=== PATIENT | female | born 1940 | race Caucasian/White ===

== ENCOUNTER → 2016-09-18 15:11 | Outpatient (CLI) | payer BC ==
[2011-04-16 12:48] VITALS: BMI 35.2
[2016-09-18 15:45] LABS: BASOPHILS 0.5 % (0.0-2.0); EOSINOPHILS 4.1 % (0-7); HEMATOCRIT 40.3 % (36.0-48.0); HEMOGLOBIN 11.6 g/dL (12-16); IMMATURE GRANULOCYTES 0.2 % (0-5); MCH 28.7 pg (26.0-34.0); MCHC 28.8 g/dL (31.0-37.0); MCV 99.8 fL (80.0-100.0); MEAN PLATELET VOLUME 13.1 fL (7.4-10.4); NEUTROPHILS 68.2 % (40-80); RBC 4.04 10x6/uL (4.00-5.40); RDW 14.2 % (11.5-14.5); WBC 5.6 10x3/uL (4.8-10.8)
[2016-09-18 15:52] LABS: PLATELET COUNT 107 10x3/uL (130-400)
[2016-09-18 16:18] LABS: CALCIUM 9.1 mg/dL (8.5-10.1); CREATININE - SERUM 0.9 mg/dL (0.6-1.3); MAGNESIUM - SERUM 2.2 mg/dL (1.8-2.4); PHOSPHOROUS 4.1 mg/dL (2.5-4.9); POTASSIUM - SERUM 4.6 mmol/L (3.5-5.1)
[2016-09-18 16:40] LABS: CARBON DIOXIDE 44.6 mmol/L (21.0-32.0)
== END | disposition home or self-care (01) ==
LOC: D.LABREF 15:11
PROVIDERS: Internal Medicine Pulmonary Disease
DX: I50.9 Heart failure, unspecified (principal); Z79.01 Long term (current) use of anticoagulants

== ENCOUNTER → 2017-03-10 13:31 | Outpatient (CLI) | payer BC ==
[2011-04-16 12:48] VITALS: BMI 35.2
== END | disposition home or self-care (01) ==
LOC: D.RT 13:31
DX: J44.9 Chronic obstructive pulmonary disease, unspecified (principal)

== ENCOUNTER → 2017-05-12 18:23 | Outpatient (CLI) | payer BC ==
[2011-04-16 12:48] VITALS: BMI 35.2
[~2017-05-12 18:23] MED LIST: ALBUTEROL1.25 MG/3 INH; BROVANA15 MCG/2 M INH; CALMOSEPTINE OI71 GM TOPICAL; FLORAJEN3 CAPS460 MG PO; FUROSEMIDE10 MG/M1 IV; GLUCOPHAGE500 MG PO; IPRAT-ALBUT 0.5-3 ML INH; K-DUR20 MEQ PO; LANOXIN125 MCG PO; LASIX40 MG PO; LISINOPRIL10 MG PO; LOVENOX60 MG/0.6 SC; Levaquin PREMIX IV; MAXIPIME 1 GM/D51 G1 IV; MULTAQ400 MG PO; Multivitamin LIQUID PEG; OMEPRAZOLE40 MG PO; PEPCID INJ20 MG/2 ML IV; PERIDEX480 ML PO; PRADAXA75 MG PO; PRAVACHOL40 MG PO; PROAIR HFA8.5 GM INH; PROTONIX I40 MG/VIAL IV; PULMICORT0.5 MG/21 UPD; SIMETHICON40 MG/0.6 PO
[2017-06-18 17:20] VITALS: BMI 25.7
== END | disposition home or self-care (01) ==
LOC: D.MAMMO 15:15
DX: Z12.31 Encounter for screening mammogram for malignant neoplasm of breast (principal)

== ENCOUNTER 2017-06-17 08:17 | Inpatient (IN) | payer MEDICARE, BC ==
[~2017-06-17] VITALS: Ht 162.6 cm; Wt 105.9 kg
--- NOTE | ~2017-06-17 | OP ---
PATIENT NAME: PHILIP JOYCE MEDICAL RECORD: [id number] :38 LOCATION:[facility] D.2309 ADMISSION DATE:06/17/17 SURGEON: HAM ARMANDO MD DATE OF OPERATION: 06/20/2017 SURGEON: Ham Armando MD PREOPERATIVE DIAGNOSES: 1. Small-bowel obstruction. 2. Atrial fibrillation with rapid ventricular response. 3. Chronic obstructive pulmonary disease. 4. Congestive heart failure. POSTOPERATIVE DIAGNOSES: 1. Small-bowel obstruction. 2. Atrial fibrillation with rapid ventricular response. 3. Chronic obstructive pulmonary disease. 4. Congestive heart failure. PROCEDURE PERFORMED: 1. Exploratory laparotomy. 2. Ultrasound-guided right internal jugular central venous line. ANESTHESIA: General. COMPLICATIONS: None. SPECIMENS: Small bowel resection. Case was clean contaminated. ESTIMATED BLOOD LOSS: 50 cc. OPERATIVE COURSE: After consent was obtained, the patient was taken to the operating room and placed in the supine position on the operating table. Next, general anesthesia was given via endotracheal intubation after a timeout was performed that confirmed the correct patient and procedure. The abdomen was prepped and draped in typical sterile fashion. During the operation, right ultrasound-guided internal jugular central venous line was placed by anesthesia. A lower midline abdominal incision was made from the umbilicus to the pubic tubercle with a 10-blade scalpel. Dissection continued to the level of the midline fascia using electrocautery. The midline fascia was opened with electrocautery. The peritoneum was grasped with hemostats times 2. It was opened with sharp Metzenbaum scissor dissection. Once in the peritoneal cavity, approximately 2 liters of ascites was suctioned from the abdomen. Once this was complete, the remaining portion of the lower midline abdominal incision was opened using electrocautery under direct vision and Ioban drapes had been placed in the skin prior to incision. Thomas retractor was placed into the lower midline abdominal incision. The small bowel was extracorporealized. A segment of approximately 20-25 cm of small bowel had formed into a closed loop obstruction. The bowel was reduced and untwisted. A functional ehyb-ls-ntae anastomosis was then created resecting the 20-25 cm of infarcted small bowel. Enterotomies were created with the Harmonic scalpel. Common enterotomy was created using the linear cutting stapler. A second firing of stapler was used to close the common enterotomy. The mesentery was then taken with the Harmonic OPERATIVE REPORT [id number] PHILIP JOYCE scalpel. The specimen was sent for permanent pathology. The mesenteric defect was closed with a 3-0 silk suture. The staple line was imbricated using 3-0 silk suture and the small bowel was run from the ligament of Treitz to the terminal ileum. The anastomosis was approximately 15-20 cm from the ileocecal valve. The abdomen was then irrigated with 3 liters of warm normal saline and again the small bowel was once again rerun from the ligament of Treitz to the terminal ileum. The anastomosis was widely patent. The NG tube was confirmed to be in the stomach. There was no evidence of bowel injury. No evidence of bleeding. At this time, the midline abdominal incision was closed with #1 looped PDS. Skin was closed with yuliet. At the end of the case, all needle and instrument counts were correct. No complications occurred. The patient was transferred to the PACU and recovery in stable condition. TRANSINT:[id number] Voice Confirmation ID: [id number] DOCUMENT ID: [id number] HAM ARMANDO MD at 1604 CC: [id number] DICTATION DATE: 06/20/17918 BOWLING ALLEY MECHANIC: 06/20/17 1043 ADM IN [address] [id number] [place] [address]
--- NOTE | ~2017-06-17 | CN ---
PATIENT NAME:PHILIP JOYCE MEDICAL RECORD: [id number] : 38 LOCATION:[facility].2309 ADMIT DATE: 06/17/17 ACCOUNT: [id number] CONSULTING PHYSICIAN: BENJAMIN EDUARDO MD REFERRING PHYSICIAN: JC SADLER MD DATE OF CONSULTATION: 06/19/2017 HISTORY OF PRESENT ILLNESS: A 77-year-old lady followed in our clinic with history of atrial fibrillation, chronic in nature as well as hypertension, diabetes mellitus and admitted with abdominal pain, was found to have bowel obstruction, being considered for bowel resection due to obstruction. We are asked to see her preoperatively. PAST MEDICAL HISTORY: 1. History of atrial fibrillation. 2. Obstructive pulmonary disease, O2 dependent. 3. Dyslipidemia. 4. Diabetes mellitus. 5. Gastroesophageal reflux disease. MEDICATIONS: Include: 1. Metformin 500 mg q.h.s. 2. Omeprazole 40 every day. 3. Lasix 40 b.i.d. p.r.n. 4. Pravastatin 40 every day. 5. Multaq 400 every day. 6. Digoxin 0.125 q.o.d. 7. Pradaxa 75 mg b.i.d. 8. Albuterol 2 puffs t.i.d. 9. Brovana 15 mcg b.i.d. ALLERGIES: None known. SOCIAL HISTORY: Retired, lives with her son. She is a nonsmoker and nondrinker. Easily takes care of her ADLs. REVIEW OF SYSTEMS: The patient reports easy bruising but reports no swollen glands. The patient reports no fever, no night sweats, no significant weight gain, no significant weight loss. No significant exercise tolerance. The patient reports no dry eyes, no irritation, no vision change. Patient reports no difficulty hearing and no ear pain. Patient reports no frequent nose bleeds or nose and sinus problems. Patient reports on arm pain on exertion. No shortness of breath while lying down. No history of heart murmur. Patient reports no cough, no wheezing or coughing up blood. Patient reports no abdominal pain, no vomiting. Normal appetite. No diarrhea and not vomiting blood. No nausea and no constipation. Patient reports no incontinence. No difficulty urinating. No hematuria. No increased frequency. Patient reports no muscle aches. No weakness, no arthralgias, no back pain. No swelling of the extremities. Patient reports no abnormal mole, no jaundice, no rashes. Reports no loss of consciousness. No weakness and no numbness. No seizures, dizziness, or headaches. The patient reports no depression, no sleep disturbance, feeling safe in a relationship and no alcohol abuse. Patient reports on fatigue. Reports no runny nose or sinus pressure. No itching, no hives, and no frequent sneezing. CONSULT REPORT [id number] PHILIP JOYCE PHYSICAL EXAMINATION: GENERAL: A pleasant female in no acute distress. VITAL SIGNS: Blood pressure 111/56, pulse 123 and irregular. HEENT: Normocephalic, atraumatic. NECK: No bruits are noted. HEART: Irregular, II/ systolic ejection murmur. Rate is currently about 96. LUNGS: Fairly good excursion. Rhythm is slight prolonged expiratory phase. ABDOMEN: Soft, nontender. EXTREMITIES: Pulses are palpable, 1+. There is no edema. NEUROLOGIC: Grossly intact. DIAGNOSTIC DATA: ECG shows AFib, variable response. IMPRESSION: AFib, intermittently tachycardic at this time, probably secondary to intravascular volume depletion, pain, etc. We will give extra digoxin IV for the short term. Echocardiogram study was reviewed. LV function remains normal. No contraindication to surgery if indicated from a cardiovascular standpoint. TRANSINT:[id number] Voice Confirmation ID: [id number] DOCUMENT ID: [id number] BENJAMIN EDUARDO MD at 0817 CC: [id number] DICTATION DATE: 06/19/17 1500 OUTREACH TEAM MEMBER: 06/19/17 1703 ADM IN [place] [id number] [place] [address]
--- NOTE | ~2017-06-17 | EC ---
PATIENT:PHILIP JOYCE DATE OF SERVICE: 06/17/17 SEX: F MEDICAL RECORD: [id number] DATE OF : 38 LOCATION:[facility] AGE OF PATIENT: 77 ADMISSION DATE: 06/17/17 REFERRING PHYSICIAN: INTERPRETING PHYSICIAN: ALLEN BECKER MD ECHOCARDIOGRAM REPORT ECHO CHARGES 4 ECHO COMPLETE CLINICAL DIAGNOSIS: AFIB/CHF ECHOCARDIOGRAPHIC MEASUREMENTS (adult normal given) AC root (d.<3.7cm) 3.1 cm LV Septum d (<1.2 cm> 1.5 cm Valve Excursion 1.3 cm LV Septum (systole) 1.6 cm Left Atria (s.<4.0cm> 4.0 cm LVPW d(<1.2cm) 1.6 cm RV (d.<2.3cm) 3.1 cm LVPW (sytole) 1.8 cm LV diastole(<5.6CM) 3.2 cm MV E-F(>70mm/sec) cm LV systole 1.8 cm LVOT Diameter 1.7 cm MV exc.(>10mm) cm Est.ejection fraction (50-75%) % Pericardial Effusion N DOPPLER: LVIT cm/sec A 78.0 cm/sec E 40.0 cm/sec LA cm/sec RVSP 51 mmHg LVOT 116 cm/sec AOP1/2T m/s Asc. Ao 145 cm/sec RVOT cm/sec RA cm/sec PA 157 cm/sec AV Gradient Peak 8.38 mmHg AV Mean 4.71 mmHg AV Area 2.0 cm MV Gradient Peak 3.88 mmHg MV Mean 1.24 mmHg MV Area cm COMMENTS: Drum Sprayer: Bang BUSH Credit Administration Specialist: 1 Dr. Becker TAPE# pacs DATE OF SERVICE: 06/17/2017 FINDINGS: 1. Left ventricular chamber size is within normal limits. Left ventricular systolic function is normal. Overall ejection fraction estimated at 60%. 2. Left atrium is upper limits of normal at 4.0 cm. Right atrium and right ventricular sizes are moderately dilated. 3. Valvular structures have normal structure and motion. 4. Doppler interrogation reveals mild mitral regurgitation, moderate tricuspid regurgitation. No other valvular insufficiency or stenosis. Pulmonary systolic ECHOCARDIOGRAM REPORT [id number] PHILIP JOYCE pressure is elevated, estimated at 51 mmHg. 5. No evidence of pericardial effusion or left ventricular thrombus. TRANSINT:[id number] Voice Confirmation ID: [id number] DOCUMENT ID: [id number] ALLEN BECKER MD at 1215 CC: [id number] DICTATION DATE: 06/18/17 1106 BAG WORKER: 06/18/17 1243 ADM IN [facility] [address] [place] [id number]
[2017-06-17 09:05] LABS: BASOPHILS 0.2 % (0-2); EOSINOPHILS 0.1 % (0-7); HEMATOCRIT 38.4 % (36.0-48.0); HEMOGLOBIN 11.5 g/dL (12-16); IMMATURE GRANULOCYTES 0.2 % (0-5); LYMPHOCYTES 5.2 % (15-50); MCH 26.6 pg (26.0-34.0); MCHC 29.9 g/dL (31.0-37.0); MCV 88.9 fL (80.0-100.0); MEAN PLATELET VOLUME 11.8 fL (7.4-10.4); MONOCYTES 3.1 % (2-11); NEUTROPHILS 91.2 % (40-80); RBC 4.32 10x6/uL (4.00-5.40); RDW 15.6 % (11.5-14.5)
[2017-06-17 09:09] LABS: PLATELET COUNT 161 10x3/uL (130-400)
[2017-06-17 10:00] LABS: AMYLASE - SERUM 31 U/L (25-115); LIPASE 122 U/L (73-393)
[2017-06-17 10:04] LABS: ALBUMIN 3.9 g/dL (3.4-5.0); ANION GAP 15.8 mmol/L (8-16); BILIRUBIN - TOTAL 0.4 mg/dL (0.2-1.3); CALCIUM 8.9 mg/dL (8.5-10.1); CREATININE - SERUM 1.4 mg/dL (0.6-1.3); POTASSIUM - SERUM 3.8 mmol/L (3.5-5.1); PROTEIN - SERUM 7.4 g/dL (6.4-8.2)
[2017-06-17 10:06] LABS: APPEARANCE HAZY (CLEAR); BACTERIA FEW /hpf (NONE SEEN); BILIRUBIN NEGATIVE (NEGATIVE); COLOR YELLOW (YELLOW); GLUCOSE NEGATIVE (NEGATIVE); HYALINE CAST 0-5 /lpf (NONE SEEN); KETONE NEGATIVE (NEGATIVE); MUCUS <1+ /lpf (NONE SEEN); NITRITE NEGATIVE (NEGATIVE); PROTEIN 1+ mg/dL (NEGATIVE); RED CELLS - URINE 0-5 /hpf (0-5); UROBILINOGEN NORMAL (NORMAL); WHITE CELLS - URINE RARE /hpf (0-5)
[2017-06-17 15:34] VITALS: BP 125/55
[2017-06-17] MEDS ORDERED: LANOXIN125 MCG PO (16:24)
[2017-06-17] MEDS ORDERED: K-DUR20 MEQ PO (16:25)
[2017-06-17] MEDS ORDERED: LASIX40 MG PO (16:25)
[2017-06-17] MEDS ORDERED: PROAIR HFA8.5 GM INH (16:26)
[2017-06-17] MEDS ORDERED: PRADAXA75 MG PO (16:26)
[2017-06-17] MEDS ORDERED: MULTAQ400 MG PO (16:27)
[2017-06-17] MEDS ORDERED: GLUCOPHAGE500 MG PO (16:27)
[2017-06-17] MEDS ORDERED: BROVANA15 MCG/2 M INH (16:28)
[2017-06-17] MEDS ORDERED: PRAVACHOL40 MG PO (16:28)
[2017-06-17] MEDS ORDERED: OMEPRAZOLE40 MG PO (16:28)
[2017-06-17] MEDS ORDERED: ALBUTEROL1.25 MG/3 INH (16:29)
[2017-06-17 17:20] VITALS: BP 125/55; BMI 25.8
[2017-06-17 20:00] VITALS: BP 115/73
[2017-06-18] VITALS: BP 122/70
[2017-06-18 04:00] VITALS: BP 123/74
[2017-06-18 05:30] LABS: BASOPHILS 0.1 % (0-2); EOSINOPHILS 0 % (0-7); HEMATOCRIT 42.3 % (36.0-48.0); HEMOGLOBIN 12.8 g/dL (12-16); IMMATURE GRANULOCYTES 0.2 % (0-5); LYMPHOCYTES 2.9 % (15-50); MCH 26.6 pg (26.0-34.0); MCHC 30.3 g/dL (31.0-37.0); MCV 87.8 fL (80.0-100.0); MEAN PLATELET VOLUME 12.9 fL (7.4-10.4); NEUTROPHILS 87.8 % (40-80); PLATELET COUNT 165 10x3/uL (130-400); RBC 4.82 10x6/uL (4.00-5.40); RDW 16.3 % (11.5-14.5); WBC 14.9 10x3/uL (4.8-10.8)
[2017-06-18 06:01] LABS: ANION GAP 8.6 mmol/L (8-16); BILIRUBIN - TOTAL 0.4 mg/dL (0.2-1.3); CALCIUM 8.7 mg/dL (8.5-10.1); CARBON DIOXIDE 34.6 mmol/L (21.0-32.0); CREATININE - SERUM 1.4 mg/dL (0.6-1.3); POTASSIUM - SERUM 4.2 mmol/L (3.5-5.1); PROTEIN - SERUM 5.9 g/dL (6.4-8.2)
[2017-06-18 06:03] LABS: ALBUMIN 2.6 g/dL (3.4-5.0)
[2017-06-18 09:31] VITALS: BP 32/71; BP 92/71
[2017-06-18 11:33] VITALS: BP 97/58
[2017-06-18 12:49] VITALS: BMI 25.7
[2017-06-18 16:34] VITALS: BP 115/42
[2017-06-18 17:20] VITALS: Ht 162.6 cm; Wt 105.9 kg
[2017-06-18 19:28] LABS: APTT 32.5 SECONDS (22.8-39.4)
[2017-06-18 19:29] LABS: INR 1.12 (0.85-1.17)
[2017-06-18 19:33] LABS: APPEARANCE CLEAR (CLEAR); BILIRUBIN NEGATIVE (NEGATIVE); COLOR YELLOW (YELLOW); GLUCOSE NEGATIVE (NEGATIVE); KETONE NEGATIVE (NEGATIVE); NITRITE NEGATIVE (NEGATIVE); PROTEIN NEGATIVE (NEGATIVE); SPECIFIC GRAVITY 1.015 (1.005-1.020); UROBILINOGEN NORMAL (NORMAL)
[2017-06-18 19:34] LABS: WHITE CELLS - URINE 0-5 /hpf (0-5)
[2017-06-18 19:35] LABS: BACTERIA FEW /hpf (NONE SEEN); EPITHELIAL CELLS 0-5 /hpf (0-5); RED CELLS - URINE OCC /hpf (0-5)
[2017-06-18 20:00] VITALS: BP 156/82
[2017-06-19] VITALS (11 sets, daily range): BP systolic 92–148; BP diastolic 47–84
[2017-06-19 06:17] LABS: BASOPHILS 0.1 % (0-2); EOSINOPHILS 0.1 % (0-7); HEMATOCRIT 38.3 % (36.0-48.0); HEMOGLOBIN 11.4 g/dL (12-16); IMMATURE GRANULOCYTES 0.3 % (0-5); LYMPHOCYTES 3.3 % (15-50); MCH 26.5 pg (26.0-34.0); MCHC 29.8 g/dL (31.0-37.0); MCV 88.9 fL (80.0-100.0); MEAN PLATELET VOLUME 13.3 fL (7.4-10.4); MONOCYTES 9.1 % (2-11); NEUTROPHILS 87.1 % (40-80); PLATELET COUNT 156 10x3/uL (130-400); RBC 4.31 10x6/uL (4.00-5.40); RDW 16.6 % (11.5-14.5); WBC 15.8 10x3/uL (4.8-10.8)
[2017-06-19 07:05] LABS: ALBUMIN 2.3 g/dL (3.4-5.0); ANION GAP 10.1 mmol/L (8-16); BILIRUBIN - TOTAL 0.36 mg/dL (0.2-1.3); CALCIUM 8.4 mg/dL (8.5-10.1); CARBON DIOXIDE 32.8 mmol/L (21.0-32.0); POTASSIUM - SERUM 3.9 mmol/L (3.5-5.1); PROTEIN - SERUM 5.7 g/dL (6.4-8.2)
[2017-06-20] VITALS (32 sets, daily range): BP systolic 67–156; BP diastolic 34–97
[2017-06-20 04:09] LABS: BASOPHILS 0.1 % (0-2); EOSINOPHILS 0.1 % (0-7); HEMATOCRIT 37.6 % (36.0-48.0); HEMOGLOBIN 11.1 g/dL (12-16); IMMATURE GRANULOCYTES 0.3 % (0-5); LYMPHOCYTES 4.4 % (15-50); MCH 26.7 pg (26.0-34.0); MCHC 29.5 g/dL (31.0-37.0); MCV 90.4 fL (80.0-100.0); MEAN PLATELET VOLUME 12.7 fL (7.4-10.4); MONOCYTES 8.5 % (2-11); NEUTROPHILS 86.6 % (40-80); PLATELET COUNT 167 10x3/uL (130-400); RBC 4.16 10x6/uL (4.00-5.40); RDW 16.5 % (11.5-14.5); WBC 14.4 10x3/uL (4.8-10.8)
[2017-06-20 04:15] LABS: ALBUMIN 2.2 g/dL (3.4-5.0); ANION GAP 8.1 mmol/L (8-16); BILIRUBIN - TOTAL 0.35 mg/dL (0.2-1.3); CALCIUM 8.1 mg/dL (8.5-10.1); CARBON DIOXIDE 34.3 mmol/L (21.0-32.0); MAGNESIUM - SERUM 2.3 mg/dL (1.8-2.4); PHOSPHOROUS 4.4 mg/dL (2.5-4.9); POTASSIUM - SERUM 4.4 mmol/L (3.5-5.1); PROTEIN - SERUM 5.5 g/dL (6.4-8.2)
[2017-06-21] VITALS (92 sets, daily range): BP systolic 79–132; BP diastolic 35–96
[2017-06-21 04:37] LABS: BASOPHILS 0.1 % (0-2); EOSINOPHILS 0.1 % (0-7); HEMATOCRIT 35.1 % (36.0-48.0); HEMOGLOBIN 10.5 g/dL (12-16); IMMATURE GRANULOCYTES 0.3 % (0-5); LYMPHOCYTES 4.6 % (15-50); MCH 26.8 pg (26.0-34.0); MCHC 29.9 g/dL (31.0-37.0); MCV 89.5 fL (80.0-100.0); MEAN PLATELET VOLUME 11.4 fL (7.4-10.4); MONOCYTES 9.6 % (2-11); NEUTROPHILS 85.3 % (40-80); PLATELET COUNT 197 10x3/uL (130-400); RBC 3.92 10x6/uL (4.00-5.40); RDW 16.8 % (11.5-14.5); WBC 14.2 10x3/uL (4.8-10.8)
[2017-06-21 04:56] LABS: ALBUMIN 1.7 g/dL (3.4-5.0); ALKALINE PHOSPHATASE 46 U/L (46-116); ALT (SGPT) 8 U/L (10-68); BILIRUBIN - TOTAL 0.26 mg/dL (0.2-1.3); CALC OSMOLALITY 297 mosm/kg (275-300); CALCIUM 7.3 mg/dL (8.5-10.1); CHLORIDE - SERUM 115 mmol/L (98-107); CREATININE - SERUM 1.1 mg/dL (0.6-1.3); GLUCOSE 132 mg/dL (74-106); MAGNESIUM - SERUM 1.9 mg/dL (1.8-2.4); POTASSIUM - SERUM 4.1 mmol/L (3.5-5.1); PROTEIN - SERUM 4.6 g/dL (6.4-8.2); SODIUM 146 mmol/L (136-145); UREA NITROGEN 27 mg/dL (7-18); eGFR NON AFRICAN AMERICAN 51 mL/min (90-120)
[2017-06-21 04:57] LABS: CARBON DIOXIDE 24.8 mmol/L (21.0-32.0); PHOSPHOROUS 3.2 mg/dL (2.5-4.9); TROPONIN-I < 0.017 ng/mL (0.000-0.060)
[2017-06-22] VITALS (96 sets, daily range): BP systolic 83–122; BP diastolic 37–67
[2017-06-22 04:02] LABS: BASOPHILS 0.1 % (0-2); EOSINOPHILS 0.5 % (0-7); HEMATOCRIT 33.1 % (36.0-48.0); HEMOGLOBIN 9.7 g/dL (12-16); IMMATURE GRANULOCYTES 0.5 % (0-5); LYMPHOCYTES 5.8 % (15-50); MCH 26.7 pg (26.0-34.0); MCHC 29.3 g/dL (31.0-37.0); MCV 91.2 fL (80.0-100.0); MEAN PLATELET VOLUME 11.3 fL (7.4-10.4); MONOCYTES 11.2 % (2-11); NEUTROPHILS 81.9 % (40-80); PLATELET COUNT 200 10x3/uL (130-400); RBC 3.63 10x6/uL (4.00-5.40); RDW 17.5 % (11.5-14.5); WBC 14.6 10x3/uL (4.8-10.8)
[2017-06-22 04:15] LABS: ALBUMIN 1.6 g/dL (3.4-5.0); BILIRUBIN - TOTAL 0.21 mg/dL (0.2-1.3); CALCIUM 7.4 mg/dL (8.5-10.1); MAGNESIUM - SERUM 1.8 mg/dL (1.8-2.4); PHOSPHOROUS 2.5 mg/dL (2.5-4.9); POTASSIUM - SERUM 4.2 mmol/L (3.5-5.1); PROTEIN - SERUM 4.7 g/dL (6.4-8.2)
[2017-06-22 04:16] LABS: ANION GAP 14.2 mmol/L (8-16)
[2017-06-23] VITALS (81 sets, daily range): BP systolic 80–125; BP diastolic 38–69
[2017-06-23 04:24] LABS: BASOPHILS 0.1 % (0-2); HEMATOCRIT 27.3 % (36.0-48.0); HEMOGLOBIN 8.3 g/dL (12-16); IMMATURE GRANULOCYTES 0.6 % (0-5); LYMPHOCYTES 9.2 % (15-50); MCH 26.7 pg (26.0-34.0); MCHC 30.4 g/dL (31.0-37.0); NEUTROPHILS 81.1 % (40-80); PLATELET COUNT 172 10x3/uL (130-400); RBC 3.11 10x6/uL (4.00-5.40); RDW 17.8 % (11.5-14.5)
[2017-06-23 04:26] LABS: MCV 87.8 fL (80.0-100.0); WBC 8.8 10x3/uL (4.8-10.8)
[2017-06-23 04:44] LABS: ALBUMIN 1.8 g/dL (3.4-5.0); ANION GAP 9.9 mmol/L (8-16); BILIRUBIN - TOTAL 0.25 mg/dL (0.2-1.3); CALCIUM 7.7 mg/dL (8.5-10.1); CARBON DIOXIDE 26.2 mmol/L (21.0-32.0); CREATININE - SERUM 0.9 mg/dL (0.6-1.3); PHOSPHOROUS 1.1 mg/dL (2.5-4.9); POTASSIUM - SERUM 4.1 mmol/L (3.5-5.1); PROTEIN - SERUM 4.8 g/dL (6.4-8.2)
[2017-06-24] VITALS (24 sets, daily range): BP systolic 95–153; BP diastolic 45–78
[2017-06-24 05:21] LABS: BASOPHILS 0.1 % (0-2); EOSINOPHILS 0.1 % (0-7); HEMATOCRIT 28.4 % (36.0-48.0); HEMOGLOBIN 8.4 g/dL (12-16); IMMATURE GRANULOCYTES 0.6 % (0-5); LYMPHOCYTES 3.8 % (15-50); MCH 26.7 pg (26.0-34.0); MCHC 29.6 g/dL (31.0-37.0); MONOCYTES 5.7 % (2-11); NEUTROPHILS 89.7 % (40-80); PLATELET COUNT 184 10x3/uL (130-400); RBC 3.15 10x6/uL (4.00-5.40); WBC 9.8 10x3/uL (4.8-10.8)
[2017-06-24 05:25] LABS: MCV 90.2 fL (80.0-100.0)
[2017-06-24 05:44] LABS: ANION GAP 9.2 mmol/L (8-16); BILIRUBIN - TOTAL 0.29 mg/dL (0.2-1.3); CALCIUM 7.8 mg/dL (8.5-10.1); CARBON DIOXIDE 29.5 mmol/L (21.0-32.0); CREATININE - SERUM 0.8 mg/dL (0.6-1.3); MAGNESIUM - SERUM 2.3 mg/dL (1.8-2.4); POTASSIUM - SERUM 4.7 mmol/L (3.5-5.1); PROTEIN - SERUM 5.5 g/dL (6.4-8.2)
[2017-06-24 05:49] LABS: ALBUMIN 2.5 g/dL (3.4-5.0)
[2017-06-25] VITALS (29 sets, daily range): BP systolic 80–155; BP diastolic 48–84
[2017-06-25 05:01] LABS: BASOPHILS 0 % (0-2); EOSINOPHILS 0.1 % (0-7); HEMATOCRIT 27.2 % (36.0-48.0); HEMOGLOBIN 8.1 g/dL (12-16); IMMATURE GRANULOCYTES 0.7 % (0-5); LYMPHOCYTES 3.6 % (15-50); MCH 26.6 pg (26.0-34.0); MCHC 29.8 g/dL (31.0-37.0); MCV 89.2 fL (80.0-100.0); MEAN PLATELET VOLUME 11.3 fL (7.4-10.4); MONOCYTES 8.6 % (2-11); PLATELET COUNT 194 10x3/uL (130-400); RBC 3.05 10x6/uL (4.00-5.40); RDW 17.7 % (11.5-14.5); WBC 9.8 10x3/uL (4.8-10.8)
[2017-06-25 05:22] LABS: ALBUMIN 2.7 g/dL (3.4-5.0); ANION GAP 7.3 mmol/L (8-16); BILIRUBIN - TOTAL 0.22 mg/dL (0.2-1.3); CALCIUM 8.2 mg/dL (8.5-10.1); CARBON DIOXIDE 32.3 mmol/L (21.0-32.0); CREATININE - SERUM 0.8 mg/dL (0.6-1.3); MAGNESIUM - SERUM 2.4 mg/dL (1.8-2.4); POTASSIUM - SERUM 4.6 mmol/L (3.5-5.1); PROTEIN - SERUM 5.3 g/dL (6.4-8.2)
[2017-06-26] VITALS (24 sets, daily range): BP systolic 98–126; BP diastolic 44–69
[2017-06-26 03:52] LABS: BASOPHILS 0 % (0-2); EOSINOPHILS 2.4 % (0-7); IMMATURE GRANULOCYTES 0.5 % (0-5); LYMPHOCYTES 8.4 % (15-50); MCH 26.9 pg (26.0-34.0); MCHC 30.8 g/dL (31.0-37.0); MCV 87.5 fL (80.0-100.0); MONOCYTES 10.2 % (2-11); NEUTROPHILS 78.5 % (40-80); PLATELET COUNT 193 10x3/uL (130-400); RBC 2.97 10x6/uL (4.00-5.40); RDW 17.7 % (11.5-14.5); WBC 7.9 10x3/uL (4.8-10.8)
[2017-06-26 04:07] LABS: ALBUMIN 2.8 g/dL (3.4-5.0); ANION GAP 8.1 mmol/L (8-16); BILIRUBIN - TOTAL 0.33 mg/dL (0.2-1.3); CALCIUM 7.8 mg/dL (8.5-10.1); CARBON DIOXIDE 29.9 mmol/L (21.0-32.0); CREATININE - SERUM 0.9 mg/dL (0.6-1.3); MAGNESIUM - SERUM 2.4 mg/dL (1.8-2.4)
[2017-06-27] VITALS (24 sets, daily range): BP systolic 97–144; BP diastolic 44–90
[2017-06-27 05:02] LABS: BASOPHILS 0 % (0-2); EOSINOPHILS 1.9 % (0-7); HEMATOCRIT 26.7 % (36.0-48.0); HEMOGLOBIN 8.3 g/dL (12-16); IMMATURE GRANULOCYTES 0.4 % (0-5); LYMPHOCYTES 8.8 % (15-50); MCH 27.2 pg (26.0-34.0); MCHC 31.1 g/dL (31.0-37.0); MCV 87.5 fL (80.0-100.0); MEAN PLATELET VOLUME 10.7 fL (7.4-10.4); MONOCYTES 8.6 % (2-11); NEUTROPHILS 80.3 % (40-80); PLATELET COUNT 216 10x3/uL (130-400); RBC 3.05 10x6/uL (4.00-5.40); RDW 18.1 % (11.5-14.5); WBC 9.5 10x3/uL (4.8-10.8)
[2017-06-27 05:22] LABS: ALBUMIN 2.5 g/dL (3.4-5.0); ALKALINE PHOSPHATASE 57 U/L (46-116); ALT (SGPT) 13 U/L (10-68); BILIRUBIN - TOTAL 0.33 mg/dL (0.2-1.3); CALC OSMOLALITY 294 mosm/kg (275-300); CALCIUM 7.6 mg/dL (8.5-10.1); CARBON DIOXIDE 30.1 mmol/L (21.0-32.0); CHLORIDE - SERUM 110 mmol/L (98-107); CREATININE - SERUM 0.7 mg/dL (0.6-1.3); GLUCOSE 126 mg/dL (74-106); MAGNESIUM - SERUM 2.5 mg/dL (1.8-2.4); POTASSIUM - SERUM 4.2 mmol/L (3.5-5.1); PROTEIN - SERUM 4.8 g/dL (6.4-8.2); SODIUM 144 mmol/L (136-145); UREA NITROGEN 28 mg/dL (7-18); eGFR NON AFRICAN AMERICAN 86 mL/min (90-120)
[2017-06-27 14:19] LABS: FUNGUS STAIN Final report (())
[2017-06-27 16:11] LABS: AFB SPECIMEN PROCESSING Concentration (())
[2017-06-28] VITALS (23 sets, daily range): BP systolic 113–169; BP diastolic 52–81
[2017-06-28 04:24] LABS: BASOPHILS 0 % (0-2); EOSINOPHILS 1.6 % (0-7); HEMATOCRIT 26.5 % (36.0-48.0); HEMOGLOBIN 8.1 g/dL (12-16); IMMATURE GRANULOCYTES 0.4 % (0-5); LYMPHOCYTES 7.6 % (15-50); MCH 26.6 pg (26.0-34.0); MCHC 30.6 g/dL (31.0-37.0); MCV 86.9 fL (80.0-100.0); MEAN PLATELET VOLUME 10.4 fL (7.4-10.4); MONOCYTES 6.9 % (2-11); NEUTROPHILS 83.5 % (40-80); PLATELET COUNT 206 10x3/uL (130-400); RBC 3.05 10x6/uL (4.00-5.40); RDW 18.1 % (11.5-14.5); WBC 10.6 10x3/uL (4.8-10.8)
[2017-06-28 04:41] LABS: ALBUMIN 2.3 g/dL (3.4-5.0); ALKALINE PHOSPHATASE 72 U/L (46-116); BILIRUBIN - TOTAL 0.38 mg/dL (0.2-1.3); CALC OSMOLALITY 295 mosm/kg (275-300); CALCIUM 7.4 mg/dL (8.5-10.1); CARBON DIOXIDE 33.1 mmol/L (21.0-32.0); CHLORIDE - SERUM 109 mmol/L (98-107); CREATININE - SERUM 0.6 mg/dL (0.6-1.3); GLUCOSE 156 mg/dL (74-106); MAGNESIUM - SERUM 2.5 mg/dL (1.8-2.4); POTASSIUM - SERUM 3.7 mmol/L (3.5-5.1); SODIUM 145 mmol/L (136-145); UREA NITROGEN 23 mg/dL (7-18); eGFR NON AFRICAN AMERICAN > 90 mL/min (90-120)
[2017-06-28 04:43] LABS: ALT (SGPT) 17 U/L (10-68)
[2017-06-29] VITALS (24 sets, daily range): BP systolic 98–141; BP diastolic 46–74
[2017-06-29 04:41] LABS: BASOPHILS 0.1 % (0-2); EOSINOPHILS 2.3 % (0-7); HEMATOCRIT 26.7 % (36.0-48.0); IMMATURE GRANULOCYTES 0.4 % (0-5); LYMPHOCYTES 5.5 % (15-50); MCH 26.6 pg (26.0-34.0); MCV 88.7 fL (80.0-100.0); MEAN PLATELET VOLUME 11.3 fL (7.4-10.4); MONOCYTES 11.1 % (2-11); NEUTROPHILS 80.6 % (40-80); PLATELET COUNT 220 10x3/uL (130-400); RBC 3.01 10x6/uL (4.00-5.40); RDW 17.7 % (11.5-14.5); WBC 9.9 10x3/uL (4.8-10.8)
[2017-06-29 05:11] LABS: ALBUMIN 2.2 g/dL (3.4-5.0); ALKALINE PHOSPHATASE 82 U/L (46-116); CALCIUM 7.5 mg/dL (8.5-10.1); CARBON DIOXIDE 35.5 mmol/L (21.0-32.0); CHLORIDE - SERUM 109 mmol/L (98-107); CREATININE - SERUM 0.6 mg/dL (0.6-1.3); GLUCOSE 126 mg/dL (74-106); POTASSIUM - SERUM 3.4 mmol/L (3.5-5.1); PROTEIN - SERUM 4.9 g/dL (6.4-8.2); SODIUM 149 mmol/L (136-145); eGFR NON AFRICAN AMERICAN > 90 mL/min (90-120)
[2017-06-29 05:19] LABS: ALT (SGPT) 23 U/L (10-68); CALC OSMOLALITY 299 mosm/kg (275-300); UREA NITROGEN 17 mg/dL (7-18)
[2017-06-30] VITALS (23 sets, daily range): BP systolic 92–128; BP diastolic 46–90
[2017-06-30 10:26] LABS: BASOPHILS 0.1 % (0-2); HEMATOCRIT 24.5 % (36.0-48.0); IMMATURE GRANULOCYTES 0.3 % (0-5); LYMPHOCYTES 10.4 % (15-50); MCH 26.8 pg (26.0-34.0); MCHC 30.2 g/dL (31.0-37.0); MCV 88.8 fL (80.0-100.0); MEAN PLATELET VOLUME 10.1 fL (7.4-10.4); MONOCYTES 9.1 % (2-11); NEUTROPHILS 77.1 % (40-80); PLATELET COUNT 184 10x3/uL (130-400); RBC 2.76 10x6/uL (4.00-5.40); RDW 17.6 % (11.5-14.5)
[2017-06-30 10:36] LABS: HEMOGLOBIN 7.4 g/dL (12-16)
[2017-06-30 10:48] LABS: CALC OSMOLALITY 291 mosm/kg (275-300); CALCIUM 7.3 mg/dL (8.5-10.1); CARBON DIOXIDE 37.4 mmol/L (21.0-32.0); CHLORIDE - SERUM 106 mmol/L (98-107); CREATININE - SERUM 0.5 mg/dL (0.6-1.3); GLUCOSE 97 mg/dL (74-106); POTASSIUM - SERUM 3.2 mmol/L (3.5-5.1); SODIUM 146 mmol/L (136-145); UREA NITROGEN 16 mg/dL (7-18); eGFR NON AFRICAN AMERICAN > 90 mL/min (90-120)
[2017-07-01] VITALS (24 sets, daily range): BP systolic 92–123; BP diastolic 45–91
[2017-07-01 04:59] LABS: BASOPHILS 0.3 % (0-2); EOSINOPHILS 3.3 % (0-7); HEMOGLOBIN 8.6 g/dL (12-16); IMMATURE GRANULOCYTES 0.3 % (0-5); LYMPHOCYTES 7.9 % (15-50); MCH 26.8 pg (26.0-34.0); MCHC 30.7 g/dL (31.0-37.0); MCV 87.2 fL (80.0-100.0); MONOCYTES 10.8 % (2-11); NEUTROPHILS 77.4 % (40-80); PLATELET COUNT 192 10x3/uL (130-400); RBC 3.21 10x6/uL (4.00-5.40); RDW 16.6 % (11.5-14.5); WBC 7.2 10x3/uL (4.8-10.8)
[2017-07-01 05:35] LABS: ALBUMIN 2.2 g/dL (3.4-5.0); ALKALINE PHOSPHATASE 102 U/L (46-116); ALT (SGPT) 20 U/L (10-68); BILIRUBIN - DIRECT 0.33 mg/dL (0.00-0.30); BILIRUBIN - INDIRECT 0.45 mg/dL (0.00-1.00); BILIRUBIN - TOTAL 0.78 mg/dL (0.2-1.3); CALC OSMOLALITY 284 mosm/kg (275-300); CALCIUM 7.6 mg/dL (8.5-10.1); CARBON DIOXIDE 36.6 mmol/L (21.0-32.0); CHLORIDE - SERUM 105 mmol/L (98-107); CREATININE - SERUM 0.6 mg/dL (0.6-1.3); GLUCOSE 82 mg/dL (74-106); MAGNESIUM - SERUM 2.4 mg/dL (1.8-2.4); PHOSPHOROUS 2.9 mg/dL (2.5-4.9); POTASSIUM - SERUM 3.2 mmol/L (3.5-5.1); PROTEIN - SERUM 4.9 g/dL (6.4-8.2); SODIUM 143 mmol/L (136-145); UREA NITROGEN 15 mg/dL (7-18); eGFR NON AFRICAN AMERICAN > 90 mL/min (90-120)
[2017-07-02] VITALS (26 sets, daily range): BP systolic 101–146; BP diastolic 52–88
[2017-07-02 04:12] LABS: BASOPHILS 0.3 % (0-2); EOSINOPHILS 2.5 % (0-7); HEMATOCRIT 29.9 % (36.0-48.0); HEMOGLOBIN 8.9 g/dL (12-16); IMMATURE GRANULOCYTES 0.2 % (0-5); LYMPHOCYTES 6.2 % (15-50); MCH 26.6 pg (26.0-34.0); MCHC 29.8 g/dL (31.0-37.0); MEAN PLATELET VOLUME 11.7 fL (7.4-10.4); MONOCYTES 7.6 % (2-11); NEUTROPHILS 83.2 % (40-80); PLATELET COUNT 222 10x3/uL (130-400); RBC 3.34 10x6/uL (4.00-5.40); RDW 16.8 % (11.5-14.5)
[2017-07-02 04:21] LABS: MCV 89.5 fL (80.0-100.0)
[2017-07-02 04:27] LABS: CALC OSMOLALITY 283 mosm/kg (275-300); CALCIUM 7.8 mg/dL (8.5-10.1); CHLORIDE - SERUM 104 mmol/L (98-107); CREATININE - SERUM 0.6 mg/dL (0.6-1.3); GLUCOSE 112 mg/dL (74-106); MAGNESIUM - SERUM 2.6 mg/dL (1.8-2.4); PHOSPHOROUS 3.3 mg/dL (2.5-4.9); POTASSIUM - SERUM 3.5 mmol/L (3.5-5.1); SODIUM 142 mmol/L (136-145); UREA NITROGEN 13 mg/dL (7-18); eGFR NON AFRICAN AMERICAN > 90 mL/min (90-120)
[2017-07-03] VITALS (26 sets, daily range): BP systolic 94–123; BP diastolic 44–69
[2017-07-03 03:32] LABS: BASOPHILS 0.2 % (0-2); EOSINOPHILS 1.5 % (0-7); HEMATOCRIT 28.8 % (36.0-48.0); HEMOGLOBIN 8.7 g/dL (12-16); IMMATURE GRANULOCYTES 0.3 % (0-5); LYMPHOCYTES 6.6 % (15-50); MCH 26.9 pg (26.0-34.0); MCHC 30.2 g/dL (31.0-37.0); MCV 89.2 fL (80.0-100.0); MEAN PLATELET VOLUME 11.7 fL (7.4-10.4); MONOCYTES 6.2 % (2-11); NEUTROPHILS 85.2 % (40-80); PLATELET COUNT 208 10x3/uL (130-400); RBC 3.23 10x6/uL (4.00-5.40); RDW 16.7 % (11.5-14.5); WBC 9.3 10x3/uL (4.8-10.8)
[2017-07-03 03:45] LABS: CALCIUM 7.5 mg/dL (8.5-10.1); CARBON DIOXIDE 35.1 mmol/L (21.0-32.0); CREATININE - SERUM 0.5 mg/dL (0.6-1.3); GLUCOSE 106 mg/dL (74-106); MAGNESIUM - SERUM 2.5 mg/dL (1.8-2.4); UREA NITROGEN 10 mg/dL (7-18); eGFR NON AFRICAN AMERICAN > 90 mL/min (90-120)
[2017-07-03 03:54] LABS: CALC OSMOLALITY 276 mosm/kg (275-300); CHLORIDE - SERUM 104 mmol/L (98-107); SODIUM 139 mmol/L (136-145)
[2017-07-03 04:00] LABS: POTASSIUM - SERUM 2.7 mmol/L (3.5-5.1)
[2017-07-04] VITALS (24 sets, daily range): BP systolic 101–141; BP diastolic 53–91
[2017-07-04 04:12] LABS: BASOPHILS 0.4 % (0-2); EOSINOPHILS 2.5 % (0-7); HEMATOCRIT 27.6 % (36.0-48.0); HEMOGLOBIN 8.2 g/dL (12-16); IMMATURE GRANULOCYTES 0.1 % (0-5); LYMPHOCYTES 7.1 % (15-50); MCH 26.9 pg (26.0-34.0); MCHC 29.7 g/dL (31.0-37.0); MCV 90.5 fL (80.0-100.0); MONOCYTES 6.7 % (2-11); NEUTROPHILS 83.2 % (40-80); PLATELET COUNT 198 10x3/uL (130-400); RBC 3.05 10x6/uL (4.00-5.40); RDW 16.8 % (11.5-14.5); WBC 7.9 10x3/uL (4.8-10.8)
[2017-07-04 04:23] LABS: CALC OSMOLALITY 283 mosm/kg (275-300); CALCIUM 7.7 mg/dL (8.5-10.1); CARBON DIOXIDE 37.6 mmol/L (21.0-32.0); CHLORIDE - SERUM 105 mmol/L (98-107); CREATININE - SERUM 0.5 mg/dL (0.6-1.3); GLUCOSE 129 mg/dL (74-106); MAGNESIUM - SERUM 2.5 mg/dL (1.8-2.4); PHOSPHOROUS 2.5 mg/dL (2.5-4.9); POTASSIUM - SERUM 3.2 mmol/L (3.5-5.1); SODIUM 142 mmol/L (136-145); UREA NITROGEN 10 mg/dL (7-18); eGFR NON AFRICAN AMERICAN > 90 mL/min (90-120)
[2017-07-05] VITALS (24 sets, daily range): BP systolic 102–154; BP diastolic 45–73
[2017-07-05 04:25] LABS: BASOPHILS 0.2 % (0-2); HEMATOCRIT 28.6 % (36.0-48.0); HEMOGLOBIN 8.5 g/dL (12-16); IMMATURE GRANULOCYTES 0.1 % (0-5); MCH 27.2 pg (26.0-34.0); MCHC 29.7 g/dL (31.0-37.0); MCV 91.7 fL (80.0-100.0); MONOCYTES 6.2 % (2-11); NEUTROPHILS 83.5 % (40-80); PLATELET COUNT 193 10x3/uL (130-400); RBC 3.12 10x6/uL (4.00-5.40); WBC 8.5 10x3/uL (4.8-10.8)
[2017-07-05 04:39] LABS: CALC OSMOLALITY 284 mosm/kg (275-300); CALCIUM 7.8 mg/dL (8.5-10.1); CARBON DIOXIDE 36.2 mmol/L (21.0-32.0); CHLORIDE - SERUM 104 mmol/L (98-107); CREATININE - SERUM 0.5 mg/dL (0.6-1.3); GLUCOSE 144 mg/dL (74-106); MAGNESIUM - SERUM 2.4 mg/dL (1.8-2.4); PHOSPHOROUS 2.4 mg/dL (2.5-4.9); POTASSIUM - SERUM 3.1 mmol/L (3.5-5.1); SODIUM 142 mmol/L (136-145); UREA NITROGEN 10 mg/dL (7-18); eGFR NON AFRICAN AMERICAN > 90 mL/min (90-120)
[2017-07-06] VITALS (23 sets, daily range): BP systolic 114–153; BP diastolic 54–94
[2017-07-06 04:59] LABS: BASOPHILS 0.5 % (0-2); EOSINOPHILS 4.7 % (0-7); HEMATOCRIT 28.2 % (36.0-48.0); HEMOGLOBIN 8.3 g/dL (12-16); IMMATURE GRANULOCYTES 0.3 % (0-5); MCH 27.2 pg (26.0-34.0); MCHC 29.4 g/dL (31.0-37.0); MCV 92.5 fL (80.0-100.0); MEAN PLATELET VOLUME 12.2 fL (7.4-10.4); MONOCYTES 7.7 % (2-11); NEUTROPHILS 76.8 % (40-80); PLATELET COUNT 183 10x3/uL (130-400); RBC 3.05 10x6/uL (4.00-5.40); RDW 16.9 % (11.5-14.5); WBC 6.6 10x3/uL (4.8-10.8)
[2017-07-06 05:18] LABS: CALCIUM 7.8 mg/dL (8.5-10.1); CARBON DIOXIDE 38.1 mmol/L (21.0-32.0); CHLORIDE - SERUM 101 mmol/L (98-107); CREATININE - SERUM 0.5 mg/dL (0.6-1.3); SODIUM 143 mmol/L (136-145); eGFR NON AFRICAN AMERICAN > 90 mL/min (90-120)
[2017-07-06 05:27] LABS: CALC OSMOLALITY 282 mosm/kg (275-300); GLUCOSE 90 mg/dL (74-106); UREA NITROGEN 7 mg/dL (7-18)
[2017-07-06 05:28] LABS: POTASSIUM - SERUM 2.8 mmol/L (3.5-5.1)
[2017-07-07] VITALS (25 sets, daily range): BP systolic 95–181; BP diastolic 40–100
[2017-07-07 04:43] LABS: BASOPHILS 0.5 % (0-2); EOSINOPHILS 3.7 % (0-7); HEMATOCRIT 27.4 % (36.0-48.0); HEMOGLOBIN 8.1 g/dL (12-16); IMMATURE GRANULOCYTES 0.2 % (0-5); LYMPHOCYTES 9.9 % (15-50); MCH 27.3 pg (26.0-34.0); MCHC 29.6 g/dL (31.0-37.0); MCV 92.3 fL (80.0-100.0); MEAN PLATELET VOLUME 11.3 fL (7.4-10.4); MONOCYTES 5.4 % (2-11); NEUTROPHILS 80.3 % (40-80); PLATELET COUNT 163 10x3/uL (130-400); RBC 2.97 10x6/uL (4.00-5.40); RDW 16.5 % (11.5-14.5); WBC 6.3 10x3/uL (4.8-10.8)
[2017-07-07 04:52] LABS: CALC OSMOLALITY 281 mosm/kg (275-300); CHLORIDE - SERUM 101 mmol/L (98-107); CREATININE - SERUM 0.5 mg/dL (0.6-1.3); GLUCOSE 81 mg/dL (74-106); POTASSIUM - SERUM 3.1 mmol/L (3.5-5.1); SODIUM 143 mmol/L (136-145); UREA NITROGEN 6 mg/dL (7-18); eGFR NON AFRICAN AMERICAN > 90 mL/min (90-120)
[2017-07-07 04:54] LABS: CARBON DIOXIDE 40.3 mmol/L (21.0-32.0)
[2017-07-07 09:04] LABS: CKMB 1.1 U/L (0.0-3.6); CREATINE KINASE 17 UL (21-215); TROPONIN-I 0.026 ng/mL (0.000-0.060)
[2017-07-07 16:07] LABS: FUNGUS CULTURE RESULT 1 Candida albicans (())
[2017-07-07 19:01] LABS: BASOPHILS 0.5 % (0-2); EOSINOPHILS 2.2 % (0-7); HEMATOCRIT 32.1 % (36.0-48.0); HEMOGLOBIN 9.6 g/dL (12-16); IMMATURE GRANULOCYTES 0.2 % (0-5); LYMPHOCYTES 6.6 % (15-50); MCH 27.7 pg (26.0-34.0); MCHC 29.9 g/dL (31.0-37.0); MCV 92.5 fL (80.0-100.0); MEAN PLATELET VOLUME 11.9 fL (7.4-10.4); MONOCYTES 6.3 % (2-11); NEUTROPHILS 84.2 % (40-80); PLATELET COUNT 168 10x3/uL (130-400); RBC 3.47 10x6/uL (4.00-5.40); RDW 16.3 % (11.5-14.5)
[2017-07-07 19:03] LABS: WBC 8.2 10x3/uL (4.8-10.8)
[2017-07-08] VITALS (24 sets, daily range): BP systolic 98–147; BP diastolic 44–74
[2017-07-08 05:30] LABS: BASOPHILS 0.4 % (0-2); EOSINOPHILS 2.5 % (0-7); HEMATOCRIT 31.1 % (36.0-48.0); HEMOGLOBIN 9.3 g/dL (12-16); IMMATURE GRANULOCYTES 0.1 % (0-5); LYMPHOCYTES 10.2 % (15-50); MCH 27.6 pg (26.0-34.0); MCHC 29.9 g/dL (31.0-37.0); MCV 92.3 fL (80.0-100.0); MONOCYTES 6.7 % (2-11); NEUTROPHILS 80.1 % (40-80); PLATELET COUNT 168 10x3/uL (130-400); RBC 3.37 10x6/uL (4.00-5.40); RDW 16.4 % (11.5-14.5); WBC 7.3 10x3/uL (4.8-10.8)
[2017-07-08 05:50] LABS: ALBUMIN 2.1 g/dL (3.4-5.0); ALKALINE PHOSPHATASE 80 U/L (46-116); ALT (SGPT) 16 U/L (10-68); CALCIUM 7.9 mg/dL (8.5-10.1); CARBON DIOXIDE 37.6 mmol/L (21.0-32.0); CHLORIDE - SERUM 102 mmol/L (98-107); CREATININE - SERUM 0.5 mg/dL (0.6-1.3); POTASSIUM - SERUM 3.7 mmol/L (3.5-5.1); PROTEIN - SERUM 5.1 g/dL (6.4-8.2); SODIUM 143 mmol/L (136-145); eGFR NON AFRICAN AMERICAN > 90 mL/min (90-120)
[2017-07-08 05:53] LABS: CALC OSMOLALITY 281 mosm/kg (275-300); GLUCOSE 65 mg/dL (74-106); UREA NITROGEN 9 mg/dL (7-18)
[2017-07-09] VITALS (24 sets, daily range): BP systolic 97–168; BP diastolic 51–97
[2017-07-09 06:11] LABS: BASOPHILS 0.2 % (0-2); EOSINOPHILS 3.2 % (0-7); HEMOGLOBIN 10.2 g/dL (12-16); IMMATURE GRANULOCYTES 0.2 % (0-5); LYMPHOCYTES 11.8 % (15-50); MCH 27.6 pg (26.0-34.0); MCV 91.9 fL (80.0-100.0); MEAN PLATELET VOLUME 12.5 fL (7.4-10.4); MONOCYTES 7.2 % (2-11); NEUTROPHILS 77.4 % (40-80); PLATELET COUNT 191 10x3/uL (130-400); RDW 16.9 % (11.5-14.5); WBC 8.5 10x3/uL (4.8-10.8)
[2017-07-09 06:31] LABS: CALC OSMOLALITY 278 mosm/kg (275-300); CALCIUM 8.1 mg/dL (8.5-10.1); CHLORIDE - SERUM 98 mmol/L (98-107); CREATININE - SERUM 0.6 mg/dL (0.6-1.3); POTASSIUM - SERUM 3.4 mmol/L (3.5-5.1); SODIUM 140 mmol/L (136-145); UREA NITROGEN 10 mg/dL (7-18); eGFR NON AFRICAN AMERICAN > 90 mL/min (90-120)
[2017-07-09 06:32] LABS: GLUCOSE 113 mg/dL (74-106)
[2017-07-10] VITALS (24 sets, daily range): BP systolic 97–146; BP diastolic 50–80
[2017-07-10 04:45] LABS: BASOPHILS 0.2 % (0-2); EOSINOPHILS 0.6 % (0-7); HEMOGLOBIN 10.5 g/dL (12-16); IMMATURE GRANULOCYTES 0.4 % (0-5); LYMPHOCYTES 4.3 % (15-50); MCH 27.5 pg (26.0-34.0); MCV 91.6 fL (80.0-100.0); MONOCYTES 9.2 % (2-11); NEUTROPHILS 85.3 % (40-80); PLATELET COUNT 214 10x3/uL (130-400); RBC 3.82 10x6/uL (4.00-5.40); RDW 16.9 % (11.5-14.5)
[2017-07-10 04:48] LABS: WBC 13.1 10x3/uL (4.8-10.8)
[2017-07-10 04:56] LABS: CALCIUM 8.1 mg/dL (8.5-10.1); CHLORIDE - SERUM 99 mmol/L (98-107); CREATININE - SERUM 0.7 mg/dL (0.6-1.3); SODIUM 142 mmol/L (136-145); UREA NITROGEN 9 mg/dL (7-18); eGFR NON AFRICAN AMERICAN 86 mL/min (90-120)
[2017-07-10 05:04] LABS: CALC OSMOLALITY 286 mosm/kg (275-300); CARBON DIOXIDE 42.2 mmol/L (21.0-32.0); GLUCOSE 189 mg/dL (74-106)
[2017-07-11] VITALS (9 sets, daily range): BP systolic 94–122; BP diastolic 46–70
[2017-07-11 03:37] LABS: BASOPHILS 0.2 % (0-2); EOSINOPHILS 2.8 % (0-7); HEMOGLOBIN 9.2 g/dL (12-16); IMMATURE GRANULOCYTES 0.2 % (0-5); LYMPHOCYTES 9.5 % (15-50); MCH 27.2 pg (26.0-34.0); MCHC 29.7 g/dL (31.0-37.0); MCV 91.7 fL (80.0-100.0); MEAN PLATELET VOLUME 12.5 fL (7.4-10.4); MONOCYTES 7.6 % (2-11); NEUTROPHILS 79.7 % (40-80); RBC 3.38 10x6/uL (4.00-5.40); RDW 17.2 % (11.5-14.5)
[2017-07-11 03:39] LABS: PLATELET COUNT 171 10x3/uL (130-400); WBC 8.2 10x3/uL (4.8-10.8)
[2017-07-11 03:53] LABS: ALBUMIN 2.3 g/dL (3.4-5.0); ALKALINE PHOSPHATASE 74 U/L (46-116); ALT (SGPT) 14 U/L (10-68); BILIRUBIN - TOTAL 0.69 mg/dL (0.2-1.3); CALC OSMOLALITY 285 mosm/kg (275-300); CHLORIDE - SERUM 101 mmol/L (98-107); CREATININE - SERUM 0.6 mg/dL (0.6-1.3); GLUCOSE 102 mg/dL (74-106); PROTEIN - SERUM 5.4 g/dL (6.4-8.2); SODIUM 144 mmol/L (136-145); UREA NITROGEN 11 mg/dL (7-18); eGFR NON AFRICAN AMERICAN > 90 mL/min (90-120)
[2017-07-11 03:54] LABS: CARBON DIOXIDE 41.4 mmol/L (21.0-32.0); POTASSIUM - SERUM 2.9 mmol/L (3.5-5.1)
[2017-07-11] MEDS ORDERED: Levaquin PREMIX IV (09:55)
[2017-07-11] MEDS ORDERED: MAXIPIME 1 GM/D51 G1 IV (09:55)
[2017-07-11] MEDS ORDERED: IPRAT-ALBUT 0.5-3 ML INH (09:56)
[2017-07-11] MEDS ORDERED: LOVENOX60 MG/0.6 SC (09:56)
[2017-07-11] MEDS ORDERED: BROVANA15 MCG/2 M INH (09:56)
[2017-07-11] MEDS ORDERED: LISINOPRIL10 MG PO (09:56)
[2017-07-11] MEDS ORDERED: FUROSEMIDE10 MG/M1 IV (09:56)
[2017-07-11] MEDS ORDERED: PULMICORT0.5 MG/21 UPD (09:57)
[2017-07-11] MEDS ORDERED: PERIDEX480 ML PO (09:57)
[2017-07-11] MEDS ORDERED: Multivitamin LIQUID PEG (09:57)
[2017-07-11] MEDS ORDERED: PROTONIX I40 MG/VIAL IV (09:57)
[2017-07-11] MEDS ORDERED: SIMETHICON40 MG/0.6 PO (09:57)
[2017-07-11] MEDS ORDERED: CALMOSEPTINE OI71 GM TOPICAL (09:57)
[2017-07-11] MEDS ORDERED: PEPCID INJ20 MG/2 ML IV (09:58)
[2017-07-11] MEDS ORDERED: FLORAJEN3 CAPS460 MG PO (09:58)
[2017-07-25 15:20] LABS: FUNGUS MYCOLOGY CULTURE Final report (())
[2017-08-13 11:18] LABS: ACID FAST CULTURE Negative (()); ACID FAST SMEAR Negative (())
== END 2017-07-11 14:14 | disposition short-term general hospital (02) | DRG 3 ==
LOC: D.ER 08:17 → D.MS 13:14 → D.ICU 13:14
PROVIDERS: Emergency Medicine; Family Medicine; Internal Medicine Pulmonary Disease; Surgery
PROC: 0T9B70Z Drainage of Bladder with Drainage Device, Via Natural or Artificial Opening (ICD-10-PCS; principal; 2017-06-18)
PROC: 5A1955Z Respiratory Ventilation, Greater than 96 Consecutive Hours (ICD-10-PCS; 2017-06-20)
PROC: 02HV33Z Insertion of Infusion Device into Superior Vena Cava, Percutaneous Approach (ICD-10-PCS; 2017-06-20)
PROC: B548ZZA Ultrasonography of Superior Vena Cava, Guidance (ICD-10-PCS; 2017-06-20)
PROC: 0BH17EZ Insertion of Endotracheal Airway into Trachea, Via Natural or Artificial Opening (ICD-10-PCS; 2017-06-20)
PROC: 0DB80ZZ Excision of Small Intestine, Open Approach (ICD-10-PCS; 2017-06-20 08:00)
PROC: 0BD78ZX Extraction of Left Main Bronchus, Via Natural or Artificial Opening Endoscopic, Diagnostic (ICD-10-PCS; 2017-06-26)
PROC: 0BD38ZX Extraction of Right Main Bronchus, Via Natural or Artificial Opening Endoscopic, Diagnostic (ICD-10-PCS; 2017-06-26)
PROC: 0B113F4 Bypass Trachea to Cutaneous with Tracheostomy Device, Percutaneous Approach (ICD-10-PCS; 2017-06-30)
DX: K56.600 Partial intestinal obstruction, unspecified as to cause (principal); J96.21 Acute and chronic respiratory failure with hypoxia; J96.22 Acute and chronic respiratory failure with hypercapnia; J18.9 Pneumonia, unspecified organism; R18.8 Other ascites; E87.0 Hyperosmolality and hypernatremia; E87.2 Acidosis; I50.32 Chronic diastolic (congestive) heart failure; J98.11 Atelectasis; T17.590A Other foreign object in bronchus causing asphyxiation, initial encounter; K56.7 Ileus, unspecified; E11.65 Type 2 diabetes mellitus with hyperglycemia; Z79.4 Long term (current) use of insulin; I10 Essential (primary) hypertension; I48.91 Unspecified atrial fibrillation; Z99.81 Dependence on supplemental oxygen; J43.9 Emphysema, unspecified; K59.09 Other constipation; R79.89 Other specified abnormal findings of blood chemistry; K80.20 Calculus of gallbladder without cholecystitis without obstruction; I08.1 Rheumatic disorders of both mitral and tricuspid valves; E87.6 Hypokalemia; E88.09 Other disorders of plasma-protein metabolism, not elsewhere classified; J44.9 Chronic obstructive pulmonary disease, unspecified; K21.9 Gastro-esophageal reflux disease without esophagitis